=== PATIENT | female | born 1985 | race Asian ===

== ENCOUNTER 2017-04-19 08:00 | Outpatient (CLI) | payer BC, OTHER | END 2017-04-19 08:01 | disposition home or self-care (01) | LOC: LAB.R 08:00 | PROVIDERS: ATTEND Nurse Practitioner Obstetrics & Gynecology | DX: Z11.3 Encounter for screening for infections with a predominantly sexual mode of transmission (principal) | CPT/HCPCS: 87491; 87591 ==

== ENCOUNTER 2017-04-19 11:06 | Outpatient (CLI) | payer BC, OTHER ==
[2017-04-19 18:30] LABS: BILIRUBIN,URINE NEGATIVE (NEGATIVE)
[2017-04-19 18:46] LABS: WBC,URINE 0-3 /HPF (0-5)
[2017-04-19 19:01] LABS: BASOPHILS # (AUTO) 0.1 10^3/uL (0.0-0.1); BASOPHILS % (AUTO) 0.6 %; EOSINOPHILS # (AUTO) 0.2 10^3/uL (0.0-0.7); EOSINOPHILS % (AUTO) 1.7 %; HCT - HEMATOCRIT 40.2 % (37.0-47.0); HGB - HEMOGLOBIN 13.3 g/dL (12.0-16.0); LYMPHOCYTES % (AUTO) 19.4 %; MEAN CORPUSCULAR HEMOGLOBIN 30.7 pg (27.0-31.0); MEAN CORPUSCULAR HGB CONC 33.1 g/dL (32.0-36.0); MEAN CORPUSCULAR VOLUME 92.7 fL (81.0-99.0); MONOCYTES % (AUTO) 9.5 %; NEUTROPHILS # (AUTO) 7.1 10^3/uL (1.5-6.6); NEUTROPHILS % (AUTO) 68.8 %; NUCLEATED RED BLOOD CELLS AUTO 0.1 /100WBC; RED BLOOD COUNT 4.34 10^6/uL (4.20-5.40); RED CELL DISTRIBUTION WIDTH 13.1 % (12.0-15.0); UNCORRECTED WHITE BLOOD COUNT 10.3 x10^3/uL; WHITE BLOOD COUNT 10.3 x10^3/uL (4.8-10.8)
[2017-04-21 12:07] LABS: TEST RESULT REPORT (())
[2017-04-21 15:17] LABS: TEST RESULT REPORT (())
== END 2017-04-19 11:07 | disposition home or self-care (01) ==
LOC: LAB.F 11:06
PROVIDERS: ATTEND Nurse Practitioner Obstetrics & Gynecology
DX: Z36 Encounter for antenatal screening of mother (principal); Z11.3 Encounter for screening for infections with a predominantly sexual mode of transmission
CPT/HCPCS: 36415; 81001; 81599; 85025; 86762; 86780; 86787; 86850; 86900; 86901; 87340; 87389; 87491; 87591

== ENCOUNTER 2017-07-12 07:29 | Outpatient (CLI) | payer BC ==
--- NOTE | 2017-07-12 10:55 | Ultrasound Report ---
OB ULTRASOUND: 07/12/2017 CLINICAL INDICATION: anatomy. TECHNIQUE: Real-time scanning was performed with personnel representative static images obtained. LAST MENSTRUAL PERIOD 02/19/2017 Clinical Age 20 weeks 3 days US Age 20 weeks 3 days EFW [place] 360 g EFW% Hadlock --- Heart Rate 138 bpm EDC 11/26/2017 US EDC 11/26/2017 BPD [place] 20 weeks 5 days; Mean mm 48.6 HC [place] 20 weeks 5 days; Mean mm 183.5 AC [place] 20 weeks 3 days; Mean mm 151.7 FL [place] 20 weeks 4 days; Mean mm 33.8 Presentation cephalic Placental Location anterior Cervical Length 3.6 cm Amniotic Fluid 15 cm FINDINGS: There is a single viable intrauterine gestation, in cephalic presentation. heart rate is 138 BPM. The placenta is anterior, without evidence of previa. Amniotic fluid volume is subjectively normal. By size, the fetus measures 20 weeks 3 days (20 weeks 3 days by LMP). The following anatomic structures were visualized and appear normal: The intracranial contents, including the ventricles and posterior fossa; the lips and orbits; the spine; the heart, including 4 chamber view and outflow tracts, and diaphragm; the abdominal contents, including the stomach, and urinary bladder, as well as a normal 3 vessel cord insertion; 4 limbs. There is prominence of the renal pelves bilaterally, measuring 5 mm on the left and 4 mm on the right. This should be followed up in the third trimester. No free fluid or adnexal lesion is appreciated. IMPRESSION: SINGLE VIABLE INTRAUTERINE GESTATION, WITH SIZE IN KEEPING WITH LMP DATING. BILATERAL RENAL PELVIECTASIS. THIS SHOULD BE REEVALUATED IN THE THIRD TRIMESTER. OTHERWISE, NORMAL ANATOMIC SURVEY. MTDD
== END 2017-07-12 07:30 | disposition home or self-care (01) ==
LOC: DI 07:29
PROVIDERS: ATTEND Nurse Practitioner Obstetrics & Gynecology
DX: R93.8 Abnormal findings on diagnostic imaging of other specified body structures (principal)
CPT/HCPCS: 76811

== ENCOUNTER 2017-08-30 10:02 | Outpatient (CLI) | payer BC ==
[2017-08-30 11:29] LABS: HCT - HEMATOCRIT 37.2 % (37.0-47.0); HGB - HEMOGLOBIN 12.5 g/dL (12.0-16.0); MEAN CORPUSCULAR HEMOGLOBIN 31.5 pg (27.0-31.0); MEAN CORPUSCULAR HGB CONC 33.7 g/dL (32.0-36.0); MEAN CORPUSCULAR VOLUME 93.5 fL (81.0-99.0); MEAN PLATELET VOLUME 7.5 fL (7.9-10.8); RED BLOOD COUNT 3.97 10^6/uL (4.20-5.40); RED CELL DISTRIBUTION WIDTH 12.6 % (12.0-15.0); WHITE BLOOD COUNT 8.9 x10^3/uL (4.8-10.8)
== END 2017-08-30 10:03 | disposition home or self-care (01) ==
LOC: LAB 10:02
PROVIDERS: ATTEND Registered Nurse
DX: Z34.82 Encounter for supervision of other normal pregnancy, second trimester (principal)
CPT/HCPCS: 36415; 82950; 86850

== ENCOUNTER 2017-09-27 13:01 | Outpatient (CLI) | payer BC ==
[2017-09-27 15:33] LABS: ALBUMIN/GLOBULIN RATIO 1.1 (1.0-2.2); BILIRUBIN,TOTAL 0.3 mg/dL (0.2-1.0); CALCIUM 8.5 mg/dL (8.5-10.3); CREATININE 0.5 mg/dL (0.4-1.0); POTASSIUM 3.7 mmol/L (3.5-5.0); TOTAL PROTEIN 6.5 g/dL (6.7-8.2)
--- NOTE | 2017-09-27 15:53 | Ultrasound Report ---
OB FOLLOWUP: 09/27/2017 CLINICAL INDICATION: growth, pyelectasis. TECHNIQUE: Real-time scanning was performed with wire rope sales representative static images obtained. LAST MENSTRUAL PERIOD 02/19/2017 Clinical Age 31 weeks 4 days US Age 31 weeks 3 days EFW [place] 1836 EFW% [place] -- Heart Rate 133 bpm EDC 11/26/2017 US EDC 11/26/2017 BPD [place] 32 weeks 4 days; Mean mm 81 HC [place] 32 weeks 0 days; Mean mm 290.7 AC [place] 32 weeks 2 days; Mean mm 282 FL [place] 30 weeks 6 days; Mean mm 59 Presentation cephalic Placental Location anterior Cervical Length -- Amniotic Fluid 21.9 FINDINGS There is a single viable intrauterine gestation, in cephalic presentation. heart rate is 133 BPM. The placenta is anterior, without evidence of previa. Amniotic fluid volume is normal, with an MARYJO of 21.9. By size, the fetus measures 31.3 weeks (31.3 weeks by LMP). Left renal pelviectasis has increased, now measuring 9 mm. Right renal pelviectasis has decreased, now measuring 3 mm. No free fluid or adnexal lesion is appreciated. IMPRESSION: SINGLE VIABLE INTRAUTERINE GESTATION, WITH EXPECTED GROWTH. ANTERIOR PLACENTA, WITHOUT EVIDENCE OF PREVIA. INCREASING LEFT RENAL PELVIECTASIS, NOW MEASURING 9 MM. MTDD
== END 2017-09-27 13:02 | disposition home or self-care (01) ==
LOC: DI 13:01
PROVIDERS: ATTEND Registered Nurse
DX: Z36.2 Encounter for other antenatal screening follow-up (principal); L29.8 Other pruritus
CPT/HCPCS: 36415; 76816; 80053; 82239

== ENCOUNTER 2017-10-25 08:00 | Outpatient (CLI) | payer BC | END 2017-10-25 23:59 | disposition home or self-care (01) | LOC: LAB.R 08:00 | PROVIDERS: ATTEND Nurse Practitioner Obstetrics & Gynecology | DX: Z36.85 Encounter for antenatal screening for Streptococcus B (principal) | CPT/HCPCS: 87081 ==

== ENCOUNTER 2017-11-22 18:09 | Inpatient (IN) | payer BC ==
--- NOTE | 2017-11-22 19:20 | HISTORY & PHYSICAL EXAMINATION ---
Admit History - Instructions [place]/Slash: -Left hand click circles element as positive or present. -Right hand click slashes element as negative or not present. - Visit Reason Visit Reason: Contractions (began following clinic visit this morning & have been persistent & consistently increasing in intensity & frequency since. No LOF, no VB, +FM. Contractions are 6/10 when occurring; no pain otherwise.) - : 2 Parity: 1 Premature: 0 Ectopic: 0 : 0 Care: positive: [facility] (beginning in 1st trimester) Risk/History: positive: Other (history of severe pp anxiety) Complications This : positive: Other (L pyelectasis ( 9mm) persistent @ 32 weeks' gestation) Smoking Status: Never smoker - Mother's Labs Mother's Blood Type: positive: A Mother's RH: positive: Positive GBS: positive: Group B Step Negative Rubella Status: positive: Immune - Other Maternal History Other Maternal History: anxiety w/ hx of severe pp anxiety; declines SSRI use during , may take s/p delivery Meds/Allgy - Home Medications Home Medications: Ambulatory Orders Medication Instructions Recorded Confirmed Pnv No.122/Iron/Folic Acid 1 tab PO DAILY 11/22/17 11/22/17 [ Multi Tablet] - Allergies Allergies/Adverse Reactions: Allergies Allergy/AdvReac Type Severity Reaction Status Date / Time No Known Drug Allergies Allergy Verified 07/12/15 06:58 Physical - Abdominal Exam Vital Signs: Temp Pulse Resp BP Pulse Ox 36.7 C 100 18 125/83 H 11/22/17 18:22 11/22/17 18:22 11/22/17 18:22 11/22/17 18:22 Contraction Frequency (min/apart): 2 Contraction Intensity: positive: Mild Uterine Resting Tone: positive: Soft - Monitoring Heart Rate Baseline: 140 Strip Review: positive: Category I - Presentation Presentation: positive: Vertex - Vaginal Exam Membranes: positive: Membranes intact Dilation (in cm): 6 Effacement (%): 80 Station: positive: -1 Cervical Position: positive: Midposition (soft) - Speculum Exam Speculum Exam Performed: positive: No - Other Notes Labor Progress Note/Additional Text: Chen is a 32 y/o @ 39w3d by LMP consistent w/ 1st trimester US who has had a affected by L pyelectasis that was persistent at 32 weeks ' gestation. She is s/p pediatric consultation & plans renal US @ 6 weeks of age to follow, earlier PRN. She has a hx of anxiety that was well- managed w/ behavioral modification during , but she also has a hx of severe & debilitating pp anxiety, previously requiring SSRI treatment. She has declined prophylactic SSRI initiation in the 3rd trimester of , but she may elect SSRI us s/p delivery. She presents this evening w/ SOOC s/p evaluation in the office for routine care today. She has been having consistently & progressively intense/frequent uterine contractions since 1100. She denies LOF/VB. She reports good FM. She rates the contraction discomfort as 6/10 @ the peak & has no discomfort between. She does have intermittent rectal pressure w/ the uterine contractions. She is coping exceptionally well w / her discomfort & is hoping to have an unmedicated delivery. She is accompanied by her supportive , Gabriel. She declines IV initiation & venipuncture. She screened negative for GBS & has had unremarkable labs t/o this . She is not anemic and does not have identifiable risk factors for PPH. PMH: Anxiety Depression PSH: hymenectomy 2000, uncomplicated OB hx: 2014, uncomplicated ROS: GEN: no fever, no chills, no fatigue HEENT: no KOHLI, no vision changes RESP: no SOB, no cough CARDIAC: no CP, no palpitations GI: no N/V/D : no dysuria, no unusual vaginal d/c OB: No LOF/VB; + uterine contractions, +FM MS: No pain, no swelling, no limited movement NEURO: No numbness/weakness/tingling PSYCH: No anxiety, no depression, excited SKIN: No pruritus, no lesion PE: GEN: AAOx3, NAD WA gravid female HEENT: Grossly normocephalic, atraumatic RESP: CTA t/o b/l CARDIAC: RRR nls1s2, no murmur GI: Abd gravid, NT, palpable movement; lie longitudinal, presentation cephalic, EFW 7# : No external lesion, BOWI OB: SVE: 6/80/-1 BBOW, EFM: BL 140bpm, + accels, no decels, mod variability; TOCO: UCs q 2-3 min x60-80 seconds, palpably strong MS: FROM t/o, no edema NEURO: no focal deficit PSYCH: pleasantly conversant, normal mood & affect SKIN: C/D/I, no lesion Plan for Labor - Plan For Labor Plan for Labor: 1. Admit to FBP 2. Reviewed pain relief measures & options for management; pt elects hydrotherapy @ this time, will utilize jacuzzi for relief 3. Reviewed labor physiology & stages/phases, anticipatory guidance provided 4. Reassess cervical status x4 hours or w/ maternal urge to push 5. Pt declines IV insertion/venipuncture, aware of implications, will utilize IM Pitocin for AMTSL, PARQ held 6. Pt declines AROM or other intervention unless no labor progress/clear medical indication, reviewed 7. Reviewed optimal maternal positioning to facilitate rotation & descent 8. Reviewed po intake recommendations, regular diet 9. Anticipate
[2017-11-22] MEDS ORDERED: SODIUM CHLORIDE FLUSH 0.9% 10 ML SYRINGE ONE (19:46)
[2017-11-22] MEDS ORDERED: SODIUM CHLORIDE FLUSH 0.9% 10 ML SYRINGE IVP PRN (20:41)
[2017-11-22 20:59] LABS: BASOPHILS # (AUTO) 0.1 10^3/uL (0.0-0.1); BASOPHILS % (AUTO) 0.4 %; EOSINOPHILS # (AUTO) 0.2 10^3/uL (0.0-0.7); HGB - HEMOGLOBIN 13.6 g/dL (12.0-16.0); LYMPHOCYTES # (AUTO) 1.8 10^3/uL (1.5-3.5); LYMPHOCYTES % (AUTO) 10.7 %; MEAN CORPUSCULAR HGB CONC 33.4 g/dL (32.0-36.0); MONOCYTES # (AUTO) 1.1 10^3/uL (0.0-1.0); MONOCYTES % (AUTO) 6.9 %; NEUTROPHILS # (AUTO) 13.3 10^3/uL (1.5-6.6); PLT - PLATELET COUNT 282 10^3/uL (130-450); RED BLOOD COUNT 4.38 10^6/uL (4.20-5.40); RED CELL DISTRIBUTION WIDTH 13.3 % (12.0-15.0); WHITE BLOOD COUNT 16.4 x10^3/uL (4.8-10.8)
--- NOTE | 2017-11-22 23:22 | PROVIDER PROGRESS NOTE ---
Labor Progress Note - Uterine Monitoring Uterine Monitoring Mode: positive: External toco Contraction Frequency (min/apart): 2-4 Contraction Intensity: positive: Strong Uterine Resting Tone: positive: Soft - Monitoring Monitor Mode: positive: External ultrasound Heart Rate Baseline: 145 Heart Rate Variability: positive: Moderate (6-25 bmp) Accelerations: positive: Present, 15x15 Decelerations: positive: None Strip Review: positive: Category I - Vaginal Exam Dilation (in cm): 7-8 Effacement (%): 80 Station: -1 Cervical Position: Midposition (soft; BBOW) - Labor Progress Note Labor Progress Note/Additional Text: S: Chen is coping well w/ her contractions. She utilized the jacuzzi w/ some relief & has been ambulating & resting intermittently. She reports that her contraction intensity has increased now to 8/10; she declines pharmacologic pain management. She states that she is coping well & has been able to doze some between contractions. She decided to have IV access established in the event she may like some IV analgesia. O: AAOx3, moderately uncomfortable gravid female VS: [id number] RR 20 BP 116/83 EFM: BL 145bpm, +accels, no decels, mod michelle TOCO: UCs q2-4 min x60-80 seconds, palpably strong SVE: 7-8cm/80/-1 midposition, soft, BBOW A: 32 y/o @ 39w3d by 1st trimester US consistent w/ LMP dating in spontaneous, active labor Slow but progressive cervical change GBS negative w/ IBOW FHTs cat I Adequate pain control w/o analgesia/anesthesia & desire for limited intervention Excellent spousal labor support P: 1. Reviewed stages & phases of labor & anticipatory guidance 2. Reviewed pain and labor management options; pt declines AROM, desires ambulation w/ alternating rest @ present for pain control, declines continuous labor support apart from that provided by her spouse 3. Reassess cervical status x4 hours, earlier PRN 4. Anticipate 5. Reviewed plan of care w/ pt, partner & RN @ bedside; all in agreement, without concerns.
--- NOTE | 2017-11-23 03:20 | PROVIDER PROGRESS NOTE ---
Labor Progress Note - Uterine Monitoring Uterine Monitoring Mode: positive: External toco Contraction Frequency (min/apart): 1-3min x60-80 seconds Contraction Intensity: positive: Strong Uterine Resting Tone: positive: Soft - Monitoring Monitor Mode: positive: External ultrasound Heart Rate Baseline: 150 Heart Rate Variability: positive: Moderate (6-25 bmp) Accelerations: positive: Present, 15x15 Decelerations: positive: None Strip Review: positive: Category I - Vaginal Exam Dilation (in cm): 9 Effacement (%): 80 Station: -1 Cervical Position: Anterior (soft; AROM for copious CAF) - Labor Progress Note Labor Progress Note/Additional Text: S: Chen is coping well w/ her uterine contractions, but she states that she is hoping that she delivers soon. She is feeling tired & would like to rest for a longer period of time than the interval between contractions. She is breathing through her contractions & has been using position changes to assist w/ her discomfort. She does not desire analgesia or anesthesia @ this time but is interested in AROM for augmentation. Gabriel is present @ the bedside, providing exceptional labor support. O: AAOx3, uncomfortable, gravid female VS: HR 90bpm, RR 18 BP 126/89 EFM: BL 150bpm, +accels, no decels, mod variability TOCO: UCs q1-3 min x60-80 seconds, palpably strong SVE: 9/80/0 BBOW AROMed for copious CAF, position LOT A: 32 y/o @ 39w4d by 1st trimester US in active, spontaneous labor Progressive cervical change; 1st stage, transition phase GBS negative, AROM for CAF FHTs cat I Adequate pain control w/o desire for analgesia/anesthesia Excellent spousal labor support, coping well P: 1. Reviewed labor physiology & anticipatory guidance for 2nd stage labor 2. Reviewed pain management options 3. Reviewed optimal maternal positioning to encourage rotation & descent 4. Anticipate 5. Reviewed plan of care w/ pt, partner & RN @ bedside; all in agreement w/o concerns.
[2017-11-23] MEDS ORDERED: OXYTOCIN 10 UNIT/ML VIAL ONE (03:56)
[2017-11-23] MEDS ORDERED: HYDROCORTISONE/PRAMOXINE 10 GM PR PRN (04:18)
[2017-11-23] MEDS ORDERED: HYDROCORTISONE 1% CREAM 28 GM TUBE PR PRN (04:18)
[2017-11-23] MEDS ORDERED: WITCH HAZEL/GLYCERIN 1 EACH MED..PAD TOP PRN (04:18)
[2017-11-23] MEDS ORDERED: OXYTOCIN/SODIUM CHLORIDE 250 ML IV ONE (04:18)
--- NOTE | 2017-11-23 04:19 | DELIVERY NOTE ---
Delivery Note - Labor Labor: positive: Spontaneous, Augmented by ARM - Infant Delivery Method Delivery Method: positive: Spontaneous vaginal delivery - Presentation Presentation: positive: Vertex, MAUDE - right occiput anterior - Nuchal Cord Nuchal Cord: positive: Present (x1), Reduced - Anesthetic Anesthetic Type: - Amniotic Fluid Description Amniotic Fluid Description: positive: Clear - Episiotomy Type Episiotomy Type: positive: None - Laceration Laceration: positive: None - Delivery Outcome Delivery Outcome: positive: Livebirth - [place]: positive: Placed in direct skin contact with mother, Stimulated, Warmed , [place] used sex: positive: Male - Cord Cord: positive: 3 vessels - Placenta Placenta: positive: Intact, Spontaneous - Estimated Blood Loss Estimated Blood Loss (in cc): 300 - Post Delivery Events Post Delivery Events: positive: No post delivery events - Delivery Comments (Free Text/Narrative) Delivery Comments (Free Text/Narrative): Chen Hernandez is a 32 y/o [id number] who presented for care in the early 1st trimester & was dated by an 8-week ultrasound that was concordant w/ her menstrual dates. She received consistent care x13 visits. Her care was complicated by persistent L pyelectasis & intermittent anxiety that was managed w/ behavioral modification. She presented in active, spontaneous labor at term & labored w/o complication or medication. Her active phase labor began at 1900 on 11/22/2016. She requested AROM for augmentation @ 9cm diltation & was AROMed for copious clear amniotic fluid @ 0301 on 11/23/2017. She was complete following reduction of anterior cervical lip @ 0340, for a total 1st stage duration of 8 hours, 40 minutes. She pushed w/ spontaneous urge to viable male in MAUDE position over an intact perineum @ 0345, for a total 2nd stage duration of 5 minutes. Loose nuchal x1 reduced easily prior to delivery of shoulders & body. vigorous w/ spontaneous, lusty cry. Placed to maternal abdomen for drying/stim. Delayed cord clamping until cessation of pulsation, then cord clamped x2 by CNM, cut by FOB. 3VC noted, cord blood obtained. Modified AMTSL performed w/ 10units IM Pitocin; delay secondary to immediate availability of Pitocin. Placenta delivered spontaneously, intact, Josef, @ 0355, for a total 3rd stage duration of 10 minutes. Fundus firm @ U- 2. Vagina & perineum inspected & found to be intact. [id number]. Mother stable w/ her , [place], in her arms & FOB @ the bedside, involved & supportive. Infant stable, weight pending, apgars 8/9--actively w/ 10 latch in direct [id number] contact w/in 20 minutes of delivery.
[2017-11-23] MEDS: ACETAMINOPHEN 500 MG TABLET PO SCH ×3 (04:59→22:42)
[2017-11-23] MEDS: SERTRALINE 50 MG TABLET PO SCH (08:44)
[2017-11-23] MEDS: CELECOXIB 100 MG CAPSULE PO SCH ×2 (08:44→20:32)
--- NOTE | 2017-11-23 18:16 | PROVIDER PROGRESS NOTE ---
Subjective - Prog Note Date Prog Note Date: 11/23/17 Prog Note Time: 18:15 - Subjective Pt reports feeling: Improved Subjective: Chen is doing well. Ambulating & voiding w/o difficulty. Tolerating po intake. well w/o difficulty. Mood is good. Gabriel is supportive. Sibling introduction went well. Objective - Vital Signs/Intake & Output Reviewed Vital Signs: Yes Vital Signs: Vital Signs x48h Temp Pulse Resp BP Pulse Ox 11/23/17 15:39 36.8 C 73 17 108/68 98 11/23/17 12:35 36.5 C 83 16 101/67 98 Intake & Output: Intake & Output 11/20/17 11/21/17 11/22/17 11/23/17 23:59 23:59 23:59 23:59 Intake Total 900 Output Total 800 Balance 100 - Objective General Appearance: positive: No acute distress, Alert Eyes Bilateral: positive: Normal inspection, PERRL, EOMI Respiratory: positive: Chest non-tender, No respiratory distress, Breath sounds nml Cardiovascular: positive: Regular rate & rhythm, No murmur, No gallop Abdomen: positive: Non-tender, No organomegaly, Nml bowel sounds, No distention , Other (FF U-1) Skin: positive: Color nml, No rash, Warm, Dry Extremities: positive: Non-tender, Full ROM, Nml appearance, No pedal edema. negative: Calf tenderness Neurologic/Psychiatric: positive: Oriented x3, CN's nml (2-12), Motor nml, Sensation nml, Mood/affect nml - Lab Results Fish Bones: 11/22/17 20:25 Other Labs: Lab Results x24hrs 11/22/17 Range/Units 20:25 WBC 16.4 H (4.8-10.8) x10^3/uL RBC 4.38 (4.20-5.40) 10^6/uL Hgb 13.6 (12.0-16.0) g/dL Hct 40.8 (37.0-47.0) % MCV 93.0 (81.0-99.0) fL MCH 31.0 (27.0-31.0) pg MCHC 33.4 (32.0-36.0) g/dL RDW 13.3 (12.0-15.0) % Plt Count 282 (130-450) 10^3/uL MPV 9.0 (7.9-10.8) fL Neut # 13.3 H (1.5-6.6) 10^3/uL Lymph # 1.8 (1.5-3.5) 10^3/uL [place] # 1.1 H (0.0-1.0) 10^3/uL Eos # 0.2 (0.0-0.7) 10^3/uL Baso # 0.1 (0.0-0.1) 10^3/uL Absolute Nucleated RBC 0.00 x10^3/uL Nucleated RBC % 0.0 /100WBC Assessment/Plan - Problem List (1) (normal spontaneous vaginal delivery) Impression: PPD#0 >12 hours s/p w/o laceration well adequate pain control w/o opioid analgesia Normal uterine involution Minimal lochia rubra hx severe pp anxiety Continue routine pp care support PRN continue sertraline 25mg po daily Anticipate D/C home PPD#1 per pt request
[2017-11-23] MEDS: DOCUSATE SODIUM 100 MG CAPSULE PO SCH (20:32)
[2017-11-24] MEDS: ACETAMINOPHEN 500 MG TABLET PO SCH (06:37)
--- NOTE | 2017-11-24 08:51 | Discharge Plan ---
Discharge Plan Disposition: 01 Home, Self Care Condition: Good Diet: Regular Activity Restrictions: Activity as Tolerated Shower Restrictions: No Driving Restrictions: No Weight Bearing: Full Weight Instruction Topics: Vaginal, Vaginal After, Breastfeed How To, Breastmilk Expressing, No Smoking: If you smoke, Please STOP! Call for help. Follow-up with: Ashley Arboleda PA [Primary Care Provider] -
--- NOTE | 2017-11-24 08:56 | DISCHARGE SUMMARY ---
Discharge Summary Admit Date: 11/22/17 Discharge Date: 11/24/17 Discharging Provider: Mary Ledesma Code Status: Attempt Resuscitation Condition at Discharge: Good Discharge Disposition: Home, Self Care Discharge Facility [facility]: [facility] - DIAGNOSES Admission Diagnoses: Spontaneous active labor Discharge Diagnoses with Status of Each Condition: - HPI History of Present Illness: Chen Hernandez is a 32 y/o [id number] who was admitted in spontaneous active labor @ term. She progressed spontaneously, underwent AROM for CAF @ 9cm dilatation & delivered vaginally w/o medication or complication over an intact perineum @ 0345 on 11/23/2017. - HOSPITAL COURSE Hospital Course: , Chen's pain is well-controlled w/o opioid analgesia. She is ambulating & voiding w/o difficulty. She is tolerating po intake. She is well w/ excellent latch & has had a previously successful experience. She has a hx of severe pp anxiety & has begun 25mg po sertraline, which she intends to continue. She has excellent social support. She will not be returning to work & her partner will have flexible time off to assist her at home. She is not planning another & intends pp paragard insertion @ her 6-week visit. She will plan to f/u x1 week to assess her mood. She is able to articulate pp warning s/sx, including pp depression s/sx, and pp aftercare instructions. She is ready to leave the hospital. - ALLERGIES Allergies/Adverse Reactions: Allergies Allergy/AdvReac Type Severity Reaction Status Date / Time No Known Drug Allergies Allergy Verified 07/12/15 06:58 - MEDICATIONS Home Medications: Ambulatory Orders Medication Instructions Recorded Confirmed Pnv No.122/Iron/Folic Acid 1 tab PO DAILY 11/22/17 11/22/17 [ Multi Tablet] Sertraline [Zoloft] 50 mg PO DAILY 11/23/17 11/23/17 - PHYSICAL EXAM AT DISCHARGE General Appearance: positive: No acute distress, Alert Eyes Bilateral: positive: Normal inspection, PERRL Respiratory: positive: Chest non-tender, No respiratory distress, Breath sounds nml Cardiovascular: positive: Regular rate & rhythm, No murmur, No gallop Abdomen: positive: Non-tender, No organomegaly, Nml bowel sounds, Other (FF U-2) Skin: positive: Color nml, No rash, Warm, Dry Extremities: positive: Non-tender, Full ROM, Nml appearance, No pedal edema. negative: Calf tenderness Neurologic/Psychiatric: positive: Oriented x3, CN's nml (2-12), Motor nml, Sensation nml, Mood/affect nml - LABS Result Diagrams: 11/22/17 20:25 - FOLLOW UP Follow Up: x1 week w/ Mary Ledesma CNM, CAROLINE - TIME SPENT Time Spent in Discharge (Minutes): 30
[2017-11-24] MEDS: SERTRALINE 50 MG TABLET PO SCH (09:39)
[2017-11-24] MEDS: CELECOXIB 100 MG CAPSULE PO SCH (09:39)
[2017-11-24] MEDS: DOCUSATE SODIUM 100 MG CAPSULE PO SCH (09:39)
[2017-11-24 10:50] VITALS: BP 116/71
--- NOTE | 2017-11-24 10:53 | Labor Flowsheet ---
Labor Flowsheet Datetime Report Generated by CPN: 11/24/2017 10:53 Datetime: 11/24/2017 09:10 VITAL SIGNS NBP Sys/Gretchen/Mean (mmHg): 116 : 71 : 77 Pulse: 87 COMMUNICATION LaborFlag: Labor Datetime: 11/23/2017 08:10 SpO2 (%): 99 Datetime: 11/23/2017 03:45 UTERINE ACTIVITY Monitor Mode: External Frequency (min): 1.5-2 Duration (sec): 60-90 Pattern: Normal: <= 5 Contractions in 10 Minutes ASSESSMENT A Monitor Mode: External US FHR Baseline Rate : 140 Variability: Moderate 6-25 bpm Accelerations: 15X15 Decelerations: None Category: Category I Datetime: 11/23/2017 03:39 VAGINAL EXAM Dilatation (cm): 10.0 Effacement (%): 100 Exam by: Luisghan Milagrosa Datetime: 11/23/2017 03:22 TEACHING Instructional Method: Verbal Labor/Induction: Pushing Methods STAGE 2 Pushing: Urge to Push Pushing Position: Pushing Right Side; Pushing Lithotomy Pushing Progress: Descent with Pushing Datetime: 11/23/2017 03:19 PATIENT CARE Patient Position/Activity: Hands-Knees Plan of Care: Plan of Care Discussed; Labor Unit Routine: Medications Pain Management: IV Narcotics; PRN Medications Datetime: 11/23/2017 03:10 PAIN Pain Scale: 10 Pain Relief Measures: Comfort Measures Pain Coping: Declines Medication or Epidural Datetime: 11/23/2017 03:03 Station: 0 Datetime: 11/23/2017 03:01 Membrane Status: Ruptured Membranes Ruptured Date/Time: 11/23/2017 03:01 Membranes Rupture Method: Artificial Amniotic Fluid Color: Clear Datetime: 11/23/2017 03:00 Respirations: 20 Datetime: 11/23/2017 02:45 Temperature (C): 36.5 Datetime: 11/23/2017 02:30 Resting Tone (Palpate): Relaxed Datetime: 11/23/2017 02:15 Medications: IV Narcotics Datetime: 11/23/2017 02:13 MATERNAL ASSESSMENT Level of Consciousness: Fully Conscious Breath Sounds, Left: Clear and Equal Breath Sounds, Right: Clear and Equal Nausea/Vomiting: Present Datetime: 11/23/2017 01:00 Quality: Strong Pain Presence: Intermittent Pain Type: Contraction Pain Location: Abdomen Datetime: 11/22/2017 23:48 I/O Interventions: Up to BR Datetime: 11/22/2017 23:47 Monitor Interventions for UA: [place] Adjusted Datetime: 11/22/2017 23:46 Monitor Interventions for FHR: Ultrasound Adjusted Datetime: 11/22/2017 22:30 Comments: category 1 vs category 2 tracing; possible variable decel x1 Datetime: 11/22/2017 22:02 Patient Care Comments: pt walking around in room
== END 2017-11-24 10:40 | disposition home or self-care (01) | DRG 775 ==
LOC: WFO 18:09 → FBP 18:10 → WFO 19:14 → FBP 19:15
PROVIDERS: ADMIT Registered Nurse; ATTEND Registered Nurse
PROC: 10E0XZZ Delivery of Products of Conception, External Approach (ICD-10-PCS; principal; 2017-11-23)
PROC: 10907ZC Drainage of Amniotic Fluid, Therapeutic from Products of Conception, Via Natural or Artificial Opening (ICD-10-PCS; 2017-11-23)
DX: O99.344 Other mental disorders complicating childbirth (principal); F41.9 Anxiety disorder, unspecified; O35.8XX0 Maternal care for other (suspected) fetal abnormality and damage, not applicable or unspecified; O69.81X0 Labor and delivery complicated by cord around neck, without compression, not applicable or unspecified; Z3A.39 39 weeks gestation of pregnancy; Z37.0 Single live birth
CPT/HCPCS: 85025; 99213

== ENCOUNTER 2018-09-26 12:39 | Outpatient (CLI) | payer OTHER ==
--- NOTE | 2018-09-26 14:20 | Ultrasound Report ---
Reason: LEFT BREAST Procedure Date: 09/26/2018 Accession Number: [id number] / [id number] Procedure: US - Breast Unilateral Limited CPT Code: FULL RESULT: EXAM: Breast Unilateral Limited DATE: 09/26/2018 2:03 PM CLINICAL HISTORY: LEFT BREAST COMPARISON: EXAM: Breast Unilateral Limited DATE: 09/26/2018 2:03 PM CLINICAL HISTORY: LEFT BREAST ? COMPARISON: None. TECHNIQUE: Targeted ultrasound was performed of the left breast in the area of clinical concern at 9 o'clock and 8 cm distance from the nipple. ?Color Doppler was employed as appropriate. ? FINDINGS: In the palpable region of concern a thin hypoechoic tubular structure without internal flow by color Doppler is identified superficially consistent with resolving superficial thrombophlebitis, likely related to a recent mild mastitis given the patient history. IMPRESSION: Resolving superficial thrombophlebitis. BI-RADS: 2 Benign findings. Recommendation: No further imaging follow-up at this time with initiation of breast cancer screening at the appropriate age. RADIA
== END 2018-09-26 12:40 | disposition home or self-care (01) ==
LOC: DI 12:39
PROVIDERS: ATTEND Nurse Practitioner Family
DX: N63.22 Unspecified lump in the left breast, upper inner quadrant (principal); I80.8 Phlebitis and thrombophlebitis of other sites
CPT/HCPCS: 76642

== ENCOUNTER 2020-03-04 09:37 | Outpatient (CLI) | payer OTHER ==
--- NOTE | 2020-03-04 10:37 | Ultrasound Report ---
Reason: LUMP IN RIGHT BREAST Procedure Date: 03/04/2020 Accession Number: [id number] / [id number] Procedure: US - Breast Unilateral Limited CPT Code: Final Report FULL RESULT: EXAM: Breast Unilateral Limited DATE: 03/04/2020 10:02 AM CLINICAL HISTORY: LUMP IN RIGHT BREAST COMPARISON: None. TECHNIQUE: Targeted ultrasound was performed of the right breast in the area of clinical concern at 10 o'clock and 4 cm distance from the nipple. Color Doppler was employed as appropriate. FINDINGS: Corresponding to the palpable finding the subcutaneous wider than tall relatively well-defined nearly isoechoic to surrounding adipose tissue, nodule which measures 2.1 x 0.8 x 1.9 cm and demonstrates an appearance most compatible with a typically benign lipoma. IMPRESSION: Benign findings RECOMMENDATION: Clinical correlation. Annual screening mammography starting at the age of 40. BIRADS CATEGORY 2: Benign findings RADIA
== END 2020-03-04 09:38 | disposition home or self-care (01) ==
LOC: DI 09:37
PROVIDERS: ATTEND Nurse Practitioner Family
DX: N63.11 Unspecified lump in the right breast, upper outer quadrant (principal)
CPT/HCPCS: 76642

== ENCOUNTER 2021-02-12 14:30 | Outpatient (CLI) | payer OTHER ==
[2021-02-12 17:56] LABS: MUDS CUTOFF CONCENTRATIONS CUTOFF CONC BELOW:
[2021-02-12 18:10] LABS: BILIRUBIN,URINE NEGATIVE (NEGATIVE); GLUCOSE, URINE (UA) NEGATIVE (NEGATIVE); KETONES,URINE (UA) NEGATIVE (NEGATIVE); LEUKOCYTE ESTERASE, URINE NEGATIVE (NEGATIVE); NITRITE,URINE NEGATIVE (NEGATIVE); OCCULT BLOOD,URINE NEGATIVE (NEGATIVE); PROTEIN,URINE NEGATIVE (NEGATIVE); UROBILINOGEN,URINE 0.2 (NORMAL) E.U./dL (NORMAL)
[2021-02-12 18:21] LABS: CLARITY,URINE CLEAR (CLEAR)
[2021-02-12 18:22] LABS: AMPHETAMINE SCREEN,URINE NEGATIVE (NEGATIVE); BARBITURATE SCREEN,UR NEGATIVE (NEGATIVE); BENZODIAZEPINES SCREEN, URINE NEGATIVE (NEGATIVE); COCAINE SCREEN URINE NEGATIVE (NEGATIVE); METHADONE SCREEN, URINE NEGATIVE (NEGATIVE); METHAMPHETAMINES SCREEN, URINE NEGATIVE (NEGATIVE); OPIATE SCREEN, URINE NEGATIVE (NEGATIVE); OXYCODONE SCREEN, URINE NEGATIVE (NEGATIVE); PROPOXYPHENE SCREEN, URINE NEGATIVE (NEGATIVE); THC CANNABINOID SCREEN, URINE NEGATIVE (NEGATIVE); TRICYCLIC ANTIDEPRESSANT,URINE NEGATIVE (NEGATIVE)
[2021-02-12 18:30] LABS: BACTERIA,URINE Rare /HPF (None Seen); RBC,URINE 0-5 /HPF (0-5); SQUAMOUS EPITHELIAL CELL,UR RARE Squamous (<= Few); WBC,URINE 0-3 /HPF (0-5)
== END 2021-02-12 23:59 | disposition home or self-care (01) ==
LOC: LAB.R 14:30
PROVIDERS: ATTEND Nurse Practitioner Obstetrics & Gynecology
DX: Z32.01 Encounter for pregnancy test, result positive (principal)
CPT/HCPCS: 80306; 81001; 87086

== ENCOUNTER 2021-02-17 14:52 | Outpatient (CLI) | payer OTHER ==
[2021-02-17 15:20] LABS: BASOPHILS % (AUTO) 0.5 %; EOSINOPHILS # (AUTO) 0.3 10^3/uL (0.0-0.7); EOSINOPHILS % (AUTO) 3.3 %; HGB - HEMOGLOBIN 12.5 g/dL (12.0-16.0); LYMPHOCYTES # (AUTO) 1.7 10^3/uL (1.5-3.5); LYMPHOCYTES % (AUTO) 20.6 %; MEAN CORPUSCULAR HEMOGLOBIN 26.9 pg (27.0-31.0); MEAN CORPUSCULAR HGB CONC 32.1 g/dL (32.0-36.0); MEAN CORPUSCULAR VOLUME 83.9 fL (81.0-99.0); MEAN PLATELET VOLUME 9.3 fL (7.9-10.8); MONOCYTES # (AUTO) 0.9 10^3/uL (0.0-1.0); MONOCYTES % (AUTO) 10.7 %; NEUTROPHILS # (AUTO) 5.3 10^3/uL (1.5-6.6); NEUTROPHILS % (AUTO) 64.8 %; PLT - PLATELET COUNT 378 10^3/uL (130-450); RED BLOOD COUNT 4.65 10^6/uL (4.20-5.40); RED CELL DISTRIBUTION WIDTH 17.6 % (12.0-15.0); WHITE BLOOD COUNT 8.2 x10^3/uL (4.8-10.8)
[2021-02-18 12:16] LABS: HEPATITIS B SURFACE ANTIGEN NON-REACTIVE (NON-REACTIVE); HEPATITIS C ANTIBODY NON-REACTIVE (NON-REACTIVE)
[2021-02-18 12:36] LABS: HIV AG/AB 4TH GEN NON-REACTIVE (NON-REACTIVE)
== END 2021-02-17 14:53 | disposition home or self-care (01) ==
LOC: LAB 14:52
PROVIDERS: ATTEND Nurse Practitioner Obstetrics & Gynecology
DX: Z32.01 Encounter for pregnancy test, result positive (principal)
CPT/HCPCS: 36415; 85025; 86592; 86762; 86787; 86803; 86850; 86900; 86901; 87340; 87389

== ENCOUNTER 2021-02-17 15:15 | Outpatient (CLI) | payer OTHER ==
--- NOTE | 2021-02-24 14:59 | Ultrasound Report ---
PROCEDURE: OB First Trimester INDICATIONS: Positive test OUTSIDE/PRIOR DATING DATA: Last menstrual period (LMP): 12/15/2020. LMP-based estimated date of delivery (ERNST): 09/21/2021. First dating scan (date and location): 9 week 4 day. Estimated date of delivery (ERNST) from first dating scan: 09/18/2021. TECHNIQUE: Real-time scanning was performed of the fetus and maternal pelvic organs, with image documentation. COMPARISON: None available FINDINGS: Embryo: Single live intrauterine with crown-rump length of 2.8 cm corresponding with a 9 w [place] 4 day gestation. Mean gestational sac size is 4.3 cm. heart rate 189 bpm. Small subchorionic bleed measures 14 x 3 x 8 mm. Cervix measures 3.3 cm in length and is closed. Measurement variability in dating: +/- 4 weeks by LMP, +/- 7 days by mean sac diameter (use before 6 weeks gestation if crown-rump length not able to be measured), +/- 5 days by crown-rump length (6-12 weeks gestation). Maternal organs: Both ovaries are appropriate in size and vascularity without torsion. There is a co mplex left ovarian cyst measuring 2.4 x 1.9 cm, probably luteum cyst.. IMPRESSION: 1. Single live intrauterine corresponding with a 9 week 4 day gestation. 2. Small subchorionic bleed/implantation bleed measures 14 x 3 mm Reviewed by: Francisco Santillan MD on 02/19/2021 1:36 PM PDT Approved by: Francisco Santillan MD on 02/19/2021 1:36 PM PDT Station ID: [id number]
== END 2021-02-17 15:16 | disposition home or self-care (01) ==
LOC: DI 15:15
PROVIDERS: ATTEND Nurse Practitioner Obstetrics & Gynecology
DX: Z32.01 Encounter for pregnancy test, result positive (principal); O20.8 Other hemorrhage in early pregnancy; Z3A.09 9 weeks gestation of pregnancy
CPT/HCPCS: 36415; 85025; 86592; 86762; 86787; 86803; 86850; 86900; 86901; 87340; 87389

== ENCOUNTER 2021-02-23 08:00 | Outpatient (CLI) | payer OTHER ==
[2021-02-23 21:57] LABS: CHLAMYDIA TRACHOMATIS DNA NEGATIVE (NEGATIVE); NEISSERIA GONORRHOEAE DNA NEGATIVE (NEGATIVE); TRICHOMONAS VAGINALIS DNA NEGATIVE (NEGATIVE)
== END 2021-02-23 23:59 | disposition home or self-care (01) ==
LOC: LAB.WC 08:00
PROVIDERS: ATTEND Nurse Practitioner Obstetrics & Gynecology
DX: Z11.3 Encounter for screening for infections with a predominantly sexual mode of transmission (principal)
CPT/HCPCS: 87491; 87591; 87661

== ENCOUNTER 2021-03-05 10:52 | Outpatient (CLI) | payer OTHER | END 2021-03-05 10:53 | disposition home or self-care (01) | LOC: LAB.S 10:52 | PROVIDERS: ATTEND Nurse Practitioner Obstetrics & Gynecology | DX: Z01.89 Encounter for other specified special examinations (principal); O09.521 Supervision of elderly multigravida, first trimester | CPT/HCPCS: 36415 ==

== ENCOUNTER 2021-04-12 10:52 | Outpatient (CLI) | payer OTHER | END 2021-04-12 10:53 | disposition home or self-care (01) | LOC: LAB.S 10:52 | PROVIDERS: ATTEND Nurse Practitioner Obstetrics & Gynecology | DX: Z36.8A Encounter for antenatal screening for other genetic defects (principal) | CPT/HCPCS: 82105 ==

== ENCOUNTER 2021-05-04 15:02 | Outpatient (CLI) | payer OTHER ==
--- NOTE | 2021-05-05 10:10 | Ultrasound Report ---
PROCEDURE: OB Detailed Eval INDICATIONS: SUPERVISION OF ELDERLY MULTIGRAVIDA OUTSIDE/PRIOR DATING DATA: Last menstrual period (LMP): 12/15/2020. LMP-based estimated date of delivery (ERNST): 09/21/2021. First dating scan (date and location): 02/17/2021. Estimated date of delivery (ERNST) from first dating scan: 09/18/2021. The below data below was generated using the computer-generated ERNST of 09/18/2021 TECHNIQUE: Real-time scanning was performed of the fetus, with image documentation and biometric measurements. COMPARISON: 02/17/2021. FINDINGS: General: A single living intrauterine gestation is present. Presentation: Variable Placenta: Placental position is posterior, without previa. Amniotic fluid index: 12.7 cm, normal for gestational age. heart rate: 152 beats per minute. Maternal cervical canal: 4.26 cm long and is closed; normal length is 2.5 cm or more. biometrics: Biparietal diameter: 4.55 cm, 19 weeks, 5 days Head circumference: 17.67 cm, 20 weeks, 1 day Abdominal circumference: 14.98 cm, 20 weeks, 2 days Femur length: 3.37 cm, 20 weeks, 4 days Estimated gestational age from initial scan: 20 weeks, 3 days. Composite gestational age from present scan: 20 weeks, 1 day Estimated weight and percentile: 347.5 g, 40.2%. Measurement variability in biometric dating: +/- 10 days from 12-20 weeks gestation, +/- 2 weeks from 20-30 weeks gestation, +/- 3 weeks at 30 weeks gestation or later. Anatomic survey: Neuro: Ventricles are normal at less than 10 mm. Cisterna magna is normal at 3-11 mm. Cerebellum i s normal in size and morphology. Nuchal skin fold: Normal at less than 6 mm between 14 and 20 weeks gestational age. Face: Nose and lips, facial profile are normal. Spine: No evidence for spina bifida. Heart: 4-chambered heart is present, with normal ventricular outflow tracts. Diaphragm: Diaphragm is intact. Stomach: Left-sided stomach is present. Kidneys: No hydronephrosis. Bilateral renal pelvis measures up to 2.8 mm in diameter. Normal is less than 5 mm in 2nd trimester, less than 7 mm in 3rd trimester. Cord: 3 vessel cord has orthotopic insertion. Bladder: Normal in size. Extremities: All 4 extremities are visualized. Corpus luteal cyst in left ovary is seen and measures approximately 1.4 x 1.1 x 0.8 cm in size. IMPRESSION: 1. Single live intrauterine with fetus in variable presentation. heart rate is 152 bp m. Normal amount of amniotic fluid. MARYJO equals 12.7 cm. Cervix is closed, cervical canal measures 4.3 cm in length. 2. Normal anatomic survey. No emy hydronephrosis. 3. Estimated weight is at 40.2%. Reviewed by: Galileo Banda MD on 05/05/2021 10:09 AM PDT Approved by: Galileo Banda MD on 05/05/2021 10:09 AM PDT Station ID: [id number]
== END 2021-05-04 15:03 | disposition home or self-care (01) ==
LOC: DI 15:02
PROVIDERS: ATTEND Nurse Practitioner Obstetrics & Gynecology
DX: O34.82 Maternal care for other abnormalities of pelvic organs, second trimester (principal); N83.12 Corpus luteum cyst of left ovary; Z3A.20 20 weeks gestation of pregnancy

== ENCOUNTER 2021-06-25 10:20 | Outpatient (CLI) | payer OTHER ==
[2021-06-25 11:52] LABS: HCT - HEMATOCRIT 36.6 % (37.0-47.0); HGB - HEMOGLOBIN 11.8 g/dL (12.0-16.0); MEAN CORPUSCULAR HGB CONC 32.2 g/dL (32.0-36.0); MEAN CORPUSCULAR VOLUME 93.1 fL (81.0-99.0); MEAN PLATELET VOLUME 9.1 fL (7.9-10.8); RED BLOOD COUNT 3.93 10^6/uL (4.20-5.40); RED CELL DISTRIBUTION WIDTH 12.5 % (12.0-15.0); WHITE BLOOD COUNT 9.3 x10^3/uL (4.8-10.8)
== END 2021-06-25 10:21 | disposition home or self-care (01) ==
LOC: LAB 10:20
PROVIDERS: ATTEND Nurse Practitioner Obstetrics & Gynecology
DX: Z36.8A Encounter for antenatal screening for other genetic defects (principal); O09.529 Supervision of elderly multigravida, unspecified trimester
CPT/HCPCS: 36415; 82950; 85027

== ENCOUNTER 2021-07-02 09:43 | Outpatient (CLI) | payer OTHER ==
[2021-07-02 10:31] LABS: GTT GLUCOSE,FASTING 81 mg/dL (70-100)
[2021-07-02 11:22] LABS: HCT - HEMATOCRIT 38.1 % (37.0-47.0); MEAN CORPUSCULAR HEMOGLOBIN 30.2 pg (27.0-31.0); MEAN CORPUSCULAR HGB CONC 31.5 g/dL (32.0-36.0); MEAN CORPUSCULAR VOLUME 95.7 fL (81.0-99.0); MEAN PLATELET VOLUME 9.3 fL (7.9-10.8); RED BLOOD COUNT 3.98 10^6/uL (4.20-5.40); RED CELL DISTRIBUTION WIDTH 12.7 % (12.0-15.0)
== END 2021-07-02 09:44 | disposition home or self-care (01) ==
LOC: LAB 09:43
PROVIDERS: ATTEND Nurse Practitioner Obstetrics & Gynecology
DX: O99.810 Abnormal glucose complicating pregnancy (principal); Z36.8A Encounter for antenatal screening for other genetic defects; O09.529 Supervision of elderly multigravida, unspecified trimester
CPT/HCPCS: 36415; 82951; 82952; 85027

== ENCOUNTER 2021-08-24 08:00 | Outpatient (CLI) | payer OTHER | END 2021-08-24 23:59 | disposition home or self-care (01) | LOC: LAB 08:00 | PROVIDERS: ATTEND Nurse Practitioner Obstetrics & Gynecology | DX: Z36.85 Encounter for antenatal screening for Streptococcus B (principal) | CPT/HCPCS: 87797 ==

== ENCOUNTER 2021-09-10 15:17 | Outpatient (CLI) | payer OTHER ==
[2021-09-10 15:41] VITALS: BP 123/83
--- NOTE | 2021-09-12 09:12 | PROVIDER PROGRESS NOTE ---
- HPI Chief Complaint: Labor Check Current : Current EDU 09/21/21 Gestation 38 Weeks and 3 Days 3 Para 2 Vital Signs Temperature 36.7 C 09/10/21 15:38 Heart Rate 125 H 09/10/21 15:38 Respiratory Rate 17 09/10/21 15:38 Blood Pressure 123/83 H 09/10/21 15:38 Temperature 36.7 C 09/10/21 15:41 Heart Rate 113 H 09/10/21 15:41 Respiratory Rate 17 09/10/21 15:41 Blood Pressure 123/83 H 09/10/21 15:41 O2 Saturation 98 09/10/21 15:41 - Procedures OB Procedure Performed: NST NST Procedure: NST Procedure Start Date 09/10/21 Start Time 15:23 Stop Time 15:55 Vibroacoustic Stimulation Used No - Plan Plan: Chen is a 36yo @ 38.3wks gestation by LMP c/w 9.4wk U/S who [facility] with c/o contractions. She denies vaginal bleeding or leakage of fluid. +FM. NST performed 09/10/2021 NST read 09/10/2021 FHR baseline 140s, moderate variability, + accels, no decels Contractions palpate moderate every 5-7 minutes with soft resting tone SVE 3/70/0, posterior. Vertex. Repeat SVE in 1.5hrs unchanged Pt released home with precautions. FINAL DIAGNOSIS: False labor >37wks gestation
== END 2021-09-10 17:20 | disposition home or self-care (01) ==
LOC: WFO 15:17 → FBP 15:18 → WFO 17:20
PROVIDERS: ATTEND Nurse Practitioner Obstetrics & Gynecology
DX: O47.1 False labor at or after 37 completed weeks of gestation (principal); Z3A.38 38 weeks gestation of pregnancy
CPT/HCPCS: 59025; 99214

== ENCOUNTER 2021-09-12 04:28 | Inpatient (IN) | payer OTHER ==
[2021-09-12] MEDS ORDERED: CARBOPROST TROMETHAMINE 250 MCG/ML AMP IM PRN (07:01)
[2021-09-12] MEDS ORDERED: TRANEXAMIC ACID IN NACL 1,000 MG/100 ML BAG IV PRN (07:01)
[2021-09-12] MEDS ORDERED: OXYTOCIN/SODIUM CHLORIDE 500 ML IV PRN (07:01)
[2021-09-12] MEDS ORDERED: SODIUM CHLORIDE FLUSH 0.9% 10 ML SYRINGE IVP PRN (07:01)
[2021-09-12] MEDS ORDERED: LIDOCAINE-MPF 1% 30 ML VIAL ID PRN (07:01)
[2021-09-12] MEDS ORDERED: miSOPROStoL 200 MCG TABLET BC PRN (07:01)
[2021-09-12] MEDS ORDERED: OXYTOCIN 10 UNIT/ML VIAL IM PRN (07:01)
[2021-09-12] MEDS ORDERED: METHYLERGONOVINE 0.2 MG/ML VIAL IM PRN (07:01)
[2021-09-12 07:40] LABS: BASOPHILS % (AUTO) 0.4 %; EOSINOPHILS # (AUTO) 0.1 10^3/uL (0.0-0.7); EOSINOPHILS % (AUTO) 1.1 %; HCT - HEMATOCRIT 36.3 % (37.0-47.0); HGB - HEMOGLOBIN 11.7 g/dL (12.0-16.0); LYMPHOCYTES # (AUTO) 1.2 10^3/uL (1.5-3.5); LYMPHOCYTES % (AUTO) 12.2 %; MEAN CORPUSCULAR HEMOGLOBIN 28.4 pg (27.0-31.0); MEAN CORPUSCULAR HGB CONC 32.2 g/dL (32.0-36.0); MEAN CORPUSCULAR VOLUME 88.1 fL (81.0-99.0); MEAN PLATELET VOLUME 10.2 fL (7.9-10.8); MONOCYTES # (AUTO) 0.9 10^3/uL (0.0-1.0); MONOCYTES % (AUTO) 9.5 %; NEUTROPHILS # (AUTO) 7.5 10^3/uL (1.5-6.6); NEUTROPHILS % (AUTO) 76.3 %; PLT - PLATELET COUNT 300 10^3/uL (130-450); RED BLOOD COUNT 4.12 10^6/uL (4.20-5.40); RED CELL DISTRIBUTION WIDTH 13.7 % (12.0-15.0); WHITE BLOOD COUNT 9.8 x10^3/uL (4.8-10.8)
[2021-09-12] MEDS ORDERED: ROPIVACAINE 0.2% 200 MG/100 ML BAG EP ONE (07:40)
[2021-09-12] MEDS ORDERED: BUPIVACAINE 0.25% PF 10 ML VIAL ONE (07:40)
[2021-09-12] MEDS ORDERED: fentaNYL 100 MCG/2 ML VIAL ONE (07:40)
[2021-09-12] MEDS ORDERED: LACTATED RINGERS 1,000 ML IV SCH (08:00)
[2021-09-12] MEDS ORDERED: ePHEDrine 50 MG/ML VIAL IVP ONE (08:10)
[2021-09-12] MEDS ORDERED: ePHEDrine 50 MG/ML VIAL IVP PRN (08:17)
[2021-09-12] MEDS ORDERED: ONDANSETRON 4 MG/2 ML VIAL IVP PRN (08:17)
[2021-09-12] MEDS ORDERED: METOCLOPRAMIDE 10 MG/2 ML VIAL IVP PRN (08:17)
[2021-09-12] MEDS ORDERED: NALOXONE 0.4 MG/ML VIAL IVP PRN (08:17)
[2021-09-12] MEDS ORDERED: NALBUPHINE 10 MG/ML AMP IVP PRN (08:17)
[2021-09-12] MEDS ORDERED: diphenhydrAMINE INJ 50 MG/ML VIAL IVP PRN (08:17)
[2021-09-12] MEDS ORDERED: ROPIVACAINE 0.2% 200 MG/100 ML BAG EP PRN (08:17)
--- NOTE | 2021-09-12 08:19 | ANESTHESIA ---
Pre-Anesthesia VS, & Labs - Diagnosis active labor - Procedure labor epidural Vital Signs: Temp Pulse Resp BP Pulse Ox 36.7 C 90 16 109/84 H 100 09/12/21 07:06 09/12/21 07:06 09/12/21 07:06 09/12/21 04:45 09/12/21 04:45 Height: 5 ft 6 in Weight (kg): 82.554 kg Body Mass Index: 29.3 BMI Classification: Overweight - NPO >8 hours - Is Patient ?: Yes - Lab Results Current Lab Results: Laboratory Tests 09/12/21 07:15: WBC 9.8, RBC 4.12 L, Hgb 11.7 L, Hct 36.3 L, MCV 88.1, MCH 28.4, MCHC 32.2, RDW 13.7, Plt Count 300, MPV 10.2, Neut # (Auto) 7.5 H, Lymph # (Auto) 1.2 L, [place] # (Auto) 0.9, Eos # (Auto) 0.1, Baso # (Auto) 0.0, Absolute Nucleated RBC 0.00, Nucleated RBC % 0.0 Lab results reviewed: Yes Fish Bones: 09/12/21 07:15 Home Medications and Allergies Active Medications Carboprost Tromethamine (Carboprost Tromethamine 250 Mcg/Ml Amp) 250 mcg IM Q15M PRN PRN Reason: Step 4: Hemorrhage protocol Stop: 09/17/21 07:02 Lactated Ringer's (Lr) 1,000 mls @ 150 mls/hr IV .Q6H40M GIAN Oxytocin/Sodium Chloride (Pitocin/Sodium Chloride) 500 mls @ 999 mls/hr IV PRN PRN; Protocol PRN Reason: POST- HEMORR PREVENTION Stop: 09/17/21 07:02 Tranexamic Acid (Tranexamic 1,000 Mg/100ml-Nacl) 1,000 mg in 100 mls @ 600 mls/hr IV .ONCE PRN PRN Reason: EBL >1200mL and within 3hr Stop: 09/17/21 07:02 Lidocaine HCl (Lidocaine-Mpf 1% 30 Ml Vial) 30 ml ID .ONCE PRN PRN Reason: PERINEAL REPAIR Stop: 09/17/21 07:02 Methylergonovine Maleate (Methylergonovine 0.2 Mg/Ml Vial) 0.2 mg IM .ONCE PRN PRN Reason: Step 2: Hemorrhage protocol Stop: 09/17/21 07:02 Misoprostol (Misoprostol 200 Mcg Tablet) 800 mcg BC .ONCE PRN PRN Reason: Step 3: Hemorrhage protocol Stop: 09/17/21 07:02 Oxytocin (Oxytocin 10 Unit/Ml Vial) 10 unit IM .ONCE PRN PRN Reason: Step one: If no IV access Stop: 09/17/21 07:02 Sodium Chloride (Sodium Chloride Flush 0.9% 10 Ml Syringe) 10 ml IVP PRN PRN PRN Reason: NEEDED PER PROVIDER ORDERS Sodium Chloride (Sodium Chloride Flush 0.9% 10 Ml Syringe) 10 ml IVP 0100,0900,1700 GIAN No122/Iron/Folic Acid [ Multi Tablet] 1 tab PO DAILY 11/22/17 Sertraline [Zoloft] 50 mg PO DAILY 11/23/17 Allergies/Adverse Reactions: Allergies Allergy/AdvReac Type Severity Reaction Status Date / Time No Known Drug Allergies Allergy Verified 07/12/15 06:58 Anes History & Medical History - Anesthetic History Anesthesia Complications: reports: No previous complications Family history of Anesthesia Complications: Denies Family history of Malignant Hyperthermia: Denies - Medical History Cardiovascular: reports: None Pulmonary: reports: None Gastrointestinal: reports: None Urinary: reports: None Smoking Status: Never smoker Exam General: Alert, Oriented x3, Cooperative, No acute distress Plan Anesthesia Type: Epidural Consent for Procedure(s) Verified and Reviewed: Yes Code Status: Attempt Resuscitation ASA classification: 2-Mild systemic disease Is this case an emergency?: No
--- NOTE | 2021-09-12 08:44 | HISTORY & PHYSICAL EXAMINATION ---
Admit History - Visit Reason Visit Reason: Contractions - : 3 Parity: 2 Premature: 0 Ectopic: 0 : 0 Care: positive: [facility] Risk/History: positive: None Complications This : positive: None Smoking Status: Never smoker - Mother's Labs Mother's Blood Type: positive: A Mother's RH: positive: Positive GBS: positive: Group B Step Negative Rubella Status: positive: Immune Meds/Allgy - Home Medications Home Medications: Ambulatory Orders Medication Instructions Recorded Confirmed No122/Iron/Folic Acid 1 tab PO DAILY 11/22/17 11/22/17 [ Multi Tablet] Sertraline [Zoloft] 50 mg PO DAILY 11/23/17 11/23/17 - Allergies Allergies/Adverse Reactions: Allergies Allergy/AdvReac Type Severity Reaction Status Date / Time No Known Drug Allergies Allergy Verified 07/12/15 06:58 Review of Systems - Constitutional Constitutional: denies: Fatigue, Fever, Chills - Eyes Eyes: denies: Blurred vision, Spots in vision, Dipolpia - Cardiovascular Cariovascular: denies: Irregular heart rate, Palpitations, Chest pain - Respiratory Respiratory: denies: Cough, SOB at rest - Gastrointestinal Gastrointestinal: denies: Change in bowel habits, Nausea, Vomiting - Integumentary Integumentary: denies: Rash, Pruritis - Neurological Neurological: denies: Headache Physical - Abdominal Exam Vital Signs: Temp Pulse Resp BP Pulse Ox 36.7 C 90 16 109/84 H 100 09/12/21 07:06 09/12/21 07:06 09/12/21 07:06 09/12/21 04:45 09/12/21 04:45 Contraction Frequency (min/apart): 2-4 Contraction Intensity: positive: Strong Uterine Resting Tone: positive: Soft - Monitoring Heart Rate Baseline: 135 Strip Review: positive: Category I - Presentation Presentation: positive: Vertex - Vaginal Exam Membranes: positive: Membranes intact Dilation (in cm): 4 Effacement (%): 70 Station: positive: -1 Cervical Position: positive: Posterior - Speculum Exam Speculum Exam Performed: positive: No Plan for Labor - Plan For Labor I expect patient to be DC'd or transferred within 96 hours.: Yes Plan for Labor: Chen is a 36yo @ 38.5wks gestation by LMP c/w 9.4wk U/S who presents to [facility] with complaints of contractions which increased in intensity this morning at approximately 0200. She has been intermittently avis for the past several days. She denies vaginal bleeding or leakage of fluid and reports +FM. She is supported by her Gabriel. She has been a patient of [facility] for the duration of her which has been complicated only by her advanced maternal age. She declined an MFM consult and all of her genetic testing has been WNL. She will be admitted for expectant management. Dating criteria: LMP 12/15/2020 Initial U/S @ 9.4wks c/w LMP dating Serial exams - agree OB Hx: G1: 07/12/2015; 40wk , 12hr labor, unmedicated, male G2: 11/23/2017, 39wk , 8 hr labor, unmedicated, male G3: Current Medications: PNV; sertraline 50mg PO daily Allergies: NKDA PMHx: Anxiety, panic attacks, abnormal pap (2010) Surgical Hx: Hymenectomy 2000 Social Hx: Never smoker. No ETOH or IVDA. Gabriel, cora Nevarez and Anthony. She is a local artist. Family Hx: Alzheimer's-paternal aunt; Prostate cancer - PGF; Hypercholestrolemia - Father course: PROBLEMS: AMA- MFM consult declined LMP: 12/15/2020 ERNST by LMP: 09/21/2021 Initial U/S: 02/17/2021 @ 9.4wks c/w LMP dating FINAL ERNST: 09/21/2021 A pos/Rubella equivocal VZV: immune Genetic testing: [place] neg; AFP- neg FAS: WNL. Posterior placenta, no previa. Size c/w dating (EFW 40.2%) Glucola- 1hr-154 3hr- 81 156,159,121 Influenza: 08/03/2021 COVID-19 vaccine- received in [facility] 06/30 GBS @ 36.0wks- NEGATIVE HSV: denies in self and partner Breast pump Rx- 06/30 MOD: Anticipate ; Gabriel, Cora Nevarez (5) & Anthony (3); It's a BOY!! Kong! unmedicated delivery(considering epidural, hoping for a more calm !); pp contraception: vasectomy pap: 12/29/2017 neg; HPV neg Physical Exam: Normocephalic, atraumatic Heart RRR w/o M/G/R Lungs CTAB Abdomen gravid, soft, nontender EFW 3300g FHR baseline 130s, moderate variability, + accels, no decels Contractions palpate strong every 2-4 minutes with soft resting tone SVE 4/70/-1, posterior. Vertex. with repeat SVE 5/80/-1 after 1hr Bilateral LE's trace edema Mood is good. Assessment: 36yo @ 38.5wks gestation by LMP c/w 9.4wk U/S Active labor FHR Category I GBS neg Plan: Continuous monitoring. Anesthesia notified to place epidural for pain management. SROM with next SVE. Anticipate . Pt verbalized understanding and agrees to above plan. She denies further questions or concerns at this time.
[2021-09-12] MEDS ORDERED: SODIUM CHLORIDE FLUSH 0.9% 10 ML SYRINGE IVP SCH (09:00)
--- NOTE | 2021-09-12 09:09 | PROVIDER PROGRESS NOTE ---
Labor Progress Note - Uterine Monitoring Uterine Monitoring Mode: positive: External toco Contraction Frequency (min/apart): 2-4 Contraction Intensity: positive: Strong Uterine Resting Tone: positive: Soft - Monitoring Monitor Mode: positive: External ultrasound Heart Rate Baseline: 140 Heart Rate Variability: positive: Moderate (6-25 bmp) Accelerations: positive: Present, 15x15 Decelerations: positive: None Strip Review: positive: Category I - Vaginal Exam Dilation (in cm): 8 Effacement (%): 100 Station: 1 - Labor Progress Note Labor Progress Note/Additional Text: S: Feeling comfortable with her epidural and states she is feeling great overall. Very relieved that she is in active labor now. Her is supportive at the bedside. O: FHR baseline 140s, moderate variability, + accels, no decels Contractions palpate firm every 2-4 minutes with soft resting tone SVE 8/100/+1. Vertex. AROM small amount of clear fluid A: 36yo @ 38.5 wks gestation by LMP c/w 9.4wk U/S Active labor FHR category I GBS neg P: Continue expectant management Continuous monitoring Position changes in bed with peanut ball. Anticipate .
--- NOTE | 2021-09-12 10:20 | DELIVERY NOTE ---
Delivery Note - Labor Labor: positive: Spontaneous - Delivery Method Delivery Method: positive: Spontaneous vaginal delivery - Presentation Presentation: positive: Vertex, DIEGO - left occiput anterior - Nuchal Cord Nuchal Cord: positive: None - Amniotic Fluid Description Amniotic Fluid Description: positive: Clear - Episiotomy Type Episiotomy Type: positive: None - Laceration Laceration: positive: None - Delivery Outcome Delivery Outcome: positive: Livebirth - [place]: positive: Placed in direct skin contact with mother, Stimulated, Warmed, [place] used sex: positive: Male - Cord Cord: positive: 3 vessels - Placenta Placenta: positive: Intact, Spontaneous - Estimated Blood Loss Estimated Blood Loss (in cc): 200 - Post Delivery Events Post Delivery Events: positive: No post delivery events - Delivery Comments (Free Text/Narrative) Delivery Comments (Free Text/Narrative): Labor: This 36yo @ 38.5wks gestation by LMP c/w 9.4wk U/S presented on 09/12/2021 @ approximately 0330 in active labor. Cervix was 4/70/0 and repeat SVE 1 hour later was 5/90/0 and vertex. FHR pattern demonstrated a Category I pattern throughout labor. Normal labor course. Epidural placed per maternal request. AROM occurred at 0833 and was noted to be a small amount of clear fluid. Pt progressed to c/c/+2 @ 0916 with onset of active pushing at 0922. : Normal of viable male on 09/12/2021 @ 0925. No nuchal cord. The was placed on maternal abdomen, stimulated, dried, and placed skin to skin. Apgars were 8/9 at 1 and 5 minutes respectively. Pitocin administered via IV for hemostasis. The umbilical cord was allowed to stop pulsating at which time it was doubly clamped by CNM and cut by FOB. 3VC. Cord blood was obtained. Fundal massage and gentle cord traction applied for active management of the third stage. Placenta delivered spontaneously and intact at 0930. EBL 200mL. Fourth stage: Uterine fundus firm and there is no excessive bleeding. The perineum, vagina, and cervix were inspected and found to be intact. initiated. Family bonding well. Both mother and baby were left in stable condition.
[2021-09-12] MEDS: ACETAMINOPHEN 500 MG TABLET PO SCH ×3 (10:51→23:11)
[2021-09-12] MEDS: IBUPROFEN 800 MG TABLET PO SCH ×3 (10:51→23:11)
[2021-09-12] MEDS: DOCUSATE SODIUM 100 MG CAPSULE PO SCH (23:11)
[2021-09-13] MEDS: ACETAMINOPHEN 500 MG TABLET PO SCH ×2 (02:52→11:06)
[2021-09-13] MEDS: IBUPROFEN 800 MG TABLET PO SCH ×2 (04:51→11:06)
--- NOTE | 2021-09-13 07:07 | Discharge Plan ---
Discharge Plan Problem Reviewed?: Yes Disposition: Home, Self Care Condition: Good Diet: Regular Activity Restrictions: No Restrictions Shower Restrictions: No Driving Restrictions: No Weight Bearing: Full Weight No Smoking: If you smoke, Please STOP! Call for help. Follow-up with: Gricelda Boss CNM, ARNP [Provider Admit Priv/Credential] -
--- NOTE | 2021-09-13 07:16 | DISCHARGE SUMMARY ---
Discharge Summary Condition at Discharge: Good Discharge Disposition: 01 Home, Self Care - HOSPITAL COURSE Hospital Course: Date of Admission: 09/12/2021 Date of Discharge: 09/13/2021 Diagnosis on Admission: 1.36yo @ 38.5wks gestation by LMP c/w 9.4wk U/S 2. Active labor 3. FHR Category I 4. GBS neg Diagnosis on Discharge: 1. 36yo PPD#1 s/p TSVD viable male 2. 3. Normal recovery Brief History: She is a patient of [facility] who presented on 09/12/2021 in active labor. Cervix was 4/70/0 and vertex. FHR pattern demonstrated Category I pattern throughout labor. Epidural was placed per maternal request. Pt spontaneously progressed to deliver a viable male infant on 09/12/2021 @ 0925 over intact perineum. EBL 200mL. She has been doing well in her course. She is ambulating and tolerating a regular diet. She is urinating without difficulty and her lochia is normal. Her pain is well controlled with oral medications. She is without difficulty and bonding well with her baby. Her Gabriel is supportive at the bedside and they are excited to get to go home this morning as soon as they can safely be discharged. She has been given instructions to continue taking her vitamin while and to continue taking ibuprofen and tylenol over the counter as needed for pain management. She intends to f/u with myself at [facility] in 1 week for routine visit or sooner if needed. She has been given precautions to call if she has any worsening fevers, chills, abdominal pain, increased vaginal bleeding or foul smelling vaginal lochia. She verbalized understanding and agrees to above plan. She denies further questions or concerns at this time. Physical Exam: Normocephalic, atraumtic, Heart RRR w/o M/G/R, lungs CTAB, abdomen soft and nontender with fundus firm at U-1, perineum intact, light lochia rubra, bilateral LE's trace edema, mood is good. - ALLERGIES Allergies/Adverse Reactions: Allergies Allergy/AdvReac Type Severity Reaction Status Date / Time No Known Drug Allergies Allergy Verified 07/12/15 06:58 - MEDICATIONS Home Medications: Ambulatory Orders Medication Instructions Recorded Confirmed No122/Iron/Folic Acid 1 tab PO DAILY 11/22/17 11/22/17 [ Multi Tablet] Sertraline [Zoloft] 50 mg PO DAILY 11/23/17 11/23/17 - LABS Result Diagrams: 09/12/21 07:15
[2021-09-13] MEDS: DOCUSATE SODIUM 100 MG CAPSULE PO SCH (11:06)
[2021-09-13] MEDS ORDERED: MEASLES,MUMPS & RUBELLA VACC 0.5 ML VIAL SUBQ ONE (11:09)
[2021-09-13 11:36] VITALS: BP 117/79
== END 2021-09-13 11:50 | disposition home or self-care (01) | DRG 807 ==
LOC: WFO 04:28 → FBP 04:29 → WFO 07:00 → FBP 07:01
PROVIDERS: ADMIT Nurse Practitioner Obstetrics & Gynecology; ATTEND Nurse Practitioner Obstetrics & Gynecology
PROC: 10E0XZZ Delivery of Products of Conception, External Approach (ICD-10-PCS; principal; 2021-09-12)
PROC: 10907ZC Drainage of Amniotic Fluid, Therapeutic from Products of Conception, Via Natural or Artificial Opening (ICD-10-PCS; 2021-09-12)
DX: O99.344 Other mental disorders complicating childbirth (principal); Z37.0 Single live birth; F41.9 Anxiety disorder, unspecified; F41.0 Panic disorder [episodic paroxysmal anxiety]; Z3A.38 38 weeks gestation of pregnancy
CPT/HCPCS: 36415; 85025; 86850; 86900; 86901; 99215; A9270; J7120

== ENCOUNTER 2021-10-13 08:00 | Outpatient (CLI) | payer OTHER | END 2021-10-13 23:59 | LOC: LAB.WC 08:00 | PROVIDERS: ATTEND Nurse Practitioner Obstetrics & Gynecology | DX: R30.9 Painful micturition, unspecified (principal) | CPT/HCPCS: 87086; 87181 ==